=== PATIENT | female | born 1960 | race Caucasian/White ===

== ENCOUNTER 2016-07-15 08:42 | Emergency (ER) | payer MEDICARE ==
[2016-07-15 08:43] VITALS: BMI 20.2
[2016-07-15 08:54] VITALS: BP 143/77; PULSE 82; TEMP 98.4
--- NOTE | 2016-07-15 09:15 | EDPRACDOC ---
- General Information Chief Complaint: Psychiatric Illness Stated Complaint: PSYCH EVAL Time Seen by Provider: 07/15/16 09:05 Mode of Arrival: Car Home Medications: Home Medications Folic Acid 1 mg PO DAILY 02/15/14 Methotrexate Sodium [Methotrexate] 20 mg PO TH 03/12/16 Albuterol Sulfate [Proair Hfa] 2 puff INH BID 07/14/16 Mometasone/Formoterol [Dulera 100 Mcg/5 Mcg Inhaler] 13 gm IH BID 07/14/16 Bupropion HCl [Wellbutrin Sr] 1 tab PO DAILY 07/15/16 Fluticasone/Vilanterol [Breo Ellipta 100-25 Mcg INH] 1 puff INH DAILY 07/15/16 Infliximab [Remicade] 100 mg IV .6WKS 07/15/16 Allergies/Adverse Reactions: Allergies Allergy/AdvReac Type Severity Reaction Status Date / Time adalimumab [From Humira] Allergy rash Verified 07/15/16 08:54 Penicillins Allergy rash Verified 07/15/16 08:54 - History of Present Illness Onset: TODAY HPI: PT WAS IN [facility] TODAY FOR COLONOSCOPY TODAY, DURING SCREENING EVALUATION FOR DEPRESSION [facility] STATES THAT PT STATED THAT SHE HAS HAD SI IN THE PAST. PT DENIES CURRENT SI, STATES THAT SHE DOES HAVE DEPRESSION BUT ADAMANTLY DENIES SI AT THIS TIME. PT STATES HER DOCTOR HAS HER ON WELLBUTRIN AND SHE IS FEELING MUCH BETTER, HAS NOT HAD ANY SUICIDAL THOUGHTS FOR SEVERAL MONTHS. PT DENIES A/ V HALLUCINATIONS, STATES EATING AND DRINKING WELL, SLEEPING WELL. PT DENIES ANY COMPLAINTS, STATES SHE JUST WANTS TO GET HER PROCEDURE DONE. Reason for Seeking Treatment: Self-referral Presents With: Reports: None Expresses: Reports: None Suicidal Plan: Reports: None Stressors: Reports: Family, Relationships Relevant History: Reports: Depression Medication Compliance: Yes Able to Care for Self: Yes Able to Control Self: Yes Associated Signs and Symptoms: Denies: Amphetamines, Anxiety, Anger, Cocaine, Depression, ETOH, Hopeless, Marijuana ED Past Medical History - History Reviewed Yes Nurses notes reviewed and agree except as marked - Patient Medical History Cardiac History: Reports: Hypertension, Syncope Respiratory History: Reports: COPD, Pneumonia GI/ History: Reports: Kidney Stones, Diverticulosis Musculoskeletal History: Reports: Arthritis, Rheumatoid Arthritis ( ON ENBREL) Psychological History: Reports: Depression Systemic History: Denies: Cancer Surgical History: Reports: Tonsillectomy/Adnoidectomy. Denies: Hysterectomy - Family Medical History Reports: Hypertension (father, brother), Diabetes (father), Cancer (father-skin ; mom ()- stomach), Cardiac Disorders (father, mom). Denies: Stroke - Social Medical History Smoking Status: Heavy tobacco smoker (5 or more cigarettes/day or daily pipe/ cigar) ETOH: Social Substance Abuse: None EDM Review of Systems - Review of Systems Constitutional: negative: Chills, Fever Eyes: negative: Blurred Vision, Double Vision Ears: negative: Drainage, Pain Throat: negative: Pain Nose: negative: Congestion, Discharge Respiratory: negative: Cough, Shortness of Breath, Wheezing Cardiovascular: negative: Chest Pain, Palpitations Gastrointestinal: negative: Diarrhea, Nausea, Pain, Vomiting Genitourinary: negative: Dysuria, Frequency Neurological: negative: Dizziness, Headache, Numbness, Weakness Musculoskeletal: No Symptoms Reported Integumentary: No Symptoms Reported - Physical Exam Constitutional: Alert (Awake), No apparent distress Oriented to: Time, Person, Place Last recorded Vital Signs: Last Vital Signs Temp 98.4 F 07/15/16 08:45 Pulse 82 07/15/16 08:45 Resp 18 07/15/16 08:45 BP 143/77 07/15/16 08:45 Pulse Ox 96 07/15/16 08:45 Oxygen Pulse Oxygen Saturation 96 O2 Device Oxygen Flow Rate Fraction of Inspired Oxygen ( FIO2) - HEENT Head: Normal ( normocephalic) Eye Exam: Normal (PERRL, EOMI, Sclera white) Oropharynx: Normal (Pharynx:Moist without exudate,Gums-no swelling) Tympanic Membrane: Normal ENT EAC: Normal TMJ: Normal Nose: No Symptoms Reported (septum midline) Neck: Normal (FROM, trachea at midline) - Respiratory/Cardiovascular Respiratory: Normal - CTA (BBS clear to auscultation without adventitious sounds ) Cardiovascular: Normal (RRR without murmur, gallop or rub) - GI Auscultation: Normal (NABS) Palpation: Normal (Soft,No rebound or guarding, non distended) Tenderness: Non tender Cui's Sign: Negative - Musculoskeletal Back: Normal (Non-Tender) Extremities: Normal (Normal tone, Pulses 2+ No cyanosis or edema, FROM) - Integumentary Skin: Normal, Warm, Dry Lymphatics: Normal (no adenopathy) - Neurologic Memory Impaired: Normal Motor Function: Normal (Normal tone, Pulses 2+ No cyanosis or edema, FROM) Cranial Nerve: Normal (CN II-X11 intact sensation, strength 5/5) Cerebellar: Normal Mood Description: Normal Perception: Normal Initial Evaluation Apperance: Neat, Stated Age Attitude: Cooperative Mood: Euthymic Affect: Congruent w/ mood Insight: Good Judgement: Good Memory Description: Intact Depressive Symptoms: Denies: Crying episodes, Hopelessness, Poor Concentration, Poor Energy, Sadness, Sleep changes, Worthlessness Anxiety Symptoms: Denies: Excessive Worries, Panic Attacks Manic/Hypomanic Symptoms: Denies: Expansive/irritable mood, Decreased Coping Skills, Racing Thoughts, Incr.pleasurable activity, Mood Swings, Pressured Speech Delusion Description: Reports: Not Present Hallucination Type: Reports: None Recommend /or Refer: Primary Care follow up - Differential Diagnosis Anxiety, Depression - Additional Information Additional Information: PT ADAMANTLY DENIES SI/HI, ADMITS TO HX OF DEPRESSION, IS ON MEDICATION AND STATES THAT IS HELPING A LOT, PT DENIES A/V HALLUCINATIONS, DOES NOT MEET CRITERIA FOR INPT EVALUATION OR PLACEMENT, PT STABLE FOR DISCHARGE TO RETURN BACK TO [facility] FOR PROCEDURE NOW. Decision Time to Discharge: 09:17 - Departure Disposition: Home Condition: Stable Final Diagnosis: History of depression Instructions: Depression (GEN) Education/Counseling Given To: Patient Education/Counseling Given Regarding: Diagnosis, Treatment, Prognosis, Follow Up Referrals: None,No Provider [Primary Care Provider] - One Week Additional Instructions: FOLLOW UP WITH YOUR PCP SCHEDULED
== END 2016-07-15 09:35 | disposition home or self-care (01) ==
LOC: ED 08:42
DX: F32.9 Major depressive disorder, single episode, unspecified (principal)
CPT/HCPCS: 99283